=== PATIENT | female | born 1940 | race Caucasian/White ===

== ENCOUNTER 2025-06-03 15:55 | Outpatient (CLI) | payer OTHER, SELFPAY | END 2025-06-03 15:56 | disposition home or self-care (01) | LOC: LKVREF 15:57 | PROVIDERS: Visit Provider Family Medicine | DX: R19.7 Diarrhea, unspecified (principal); A49.02 Methicillin resistant Staphylococcus aureus infection, unspecified site | CPT/HCPCS: 80053 ==